=== PATIENT | female | born 1955 | race Caucasian/White ===

== ENCOUNTER 2020-11-23 07:19 | Emergency (ER) | payer OTHER ==
--- NOTE | 2020-11-23 07:40 | EDM.PDOC ---
ED HPI GENERAL MEDICAL PROBLEM - General Chief Complaint: Upper Extremity Injury/Pain Stated Complaint: FELL AND HURT LEFT WRIST Time Seen by Provider: 11/23/20 07:39 Source of Information: Reports: Patient History Limitations: Reports: No Limitations - History of Present Illness INITIAL COMMENTS - FREE TEXT/NARRATIVE: pt was taking boxes down and tripped and landed on her left wrist. She has a pain rating at a 6 this am. She does have a splint on the wrist this am. Onset: Other ( incident happened last nite. ) Duration: Hour(s): Location: Reports: Upper Extremity, Left Associated Symptoms: Reports: No Other Symptoms Right Wrist Pain Score (Numeric/FACES): 6 - Related Data Allergies Allergy/AdvReac Type Severity Reaction Status Date / Time Penicillins Allergy Swelling Verified 11/23/20 07:30 Home Meds: Home Meds Albuterol Sulfate [Proair Hfa] 2 puff IH Q4HR PRN 09/09/14 [History] Esomeprazole [NexIUM] 40 mg PO DAILY 09/09/14 [History] Fluticasone/Salmeterol [Advair 100-50 Diskus] 1 puff INH DAILY 09/09/14 [History] atorvaSTATin [Lipitor] 20 mg PO BEDTIME 09/09/14 [History] buPROPion HCL [Wellbutrin SR] 150 mg PO DAILY 09/09/14 [History] Review of Systems - Review of Systems Review Of Systems: See Below Eyes: Reports: No Symptoms Ears: Reports: No Symptoms Nose: Reports: No Symptoms Mouth/Throat: Reports: No Symptoms Respiratory: Reports: No Symptoms Cardiovascular: Reports: No Symptoms GI/Abdominal: Reports: No Symptoms Genitourinary: Reports: No Symptoms Musculoskeletal: Reports: Other (pain in left wrist. ) ED EXAM, GENERAL - Physical Exam Exam: See Below Free Text/Narrative:: pt arrived with pain in the left wrist after a fall. She has swelling and abrasions present. Xrays do no show a definite fracture. Exam Limited By: No Limitations General Appearance: Alert Extremities: Other (left wrist is painful and swollen. She has some abrasions present. She had a xray which showed no definte fracture. She will followup in a few days and may need to be rexrayed or MRI if persistent pain. ) Course - Vital Signs Last Recorded V/S: Last Vital Signs Temp 36.4 C 11/23/20 07:28 Pulse 88 11/23/20 07:28 Resp 18 11/23/20 07:28 BP 149/91 H 11/23/20 07:35 Pulse Ox 95 11/23/20 07:28 - Orders/Labs/Meds Orders: Active Orders 24 hr Category Date Time Status Consult to Orthopedic Clinic [CONS] Routine Cons 11/23/20 09:00 Ordered - Re-Assessments/Exams Free Text/Narrative Re-Assessment/Exam: 11/23/20 09:04 pt will use a splint and has a followup ortho appt. Departure - Departure Time of Disposition: 09:05 Disposition: Home, Self-Care 01 Condition: Fair Clinical Impression: Contusion of left wrist - Discharge Information Referrals: Josie Trinidad CNM [Primary Care Provider] - Forms: ED Department Discharge Care Plan Goals: ortho appt if ongoing pain, elvate cool pack, no work for the next 4-5 days, motrin 600mg q6h prn for pain alternate with tylenol. Sepsis Event Note (ED) - Evaluation Sepsis Screening Result: No Definite Risk - Focused Exam Vital Signs: Vital Signs Temp Pulse Resp BP Pulse Ox 11/23/20 07:35 149/91 H 11/23/20 07:28 36.4 C 88 18 174/127 H 95 - My Orders Last 24 Hours: My Active Orders 11/23/20 09:00 Consult to Orthopedic Clinic [CONS] Routine - Assessment/Plan Last 24 Hours: My Active Orders 11/23/20 09:00 Consult to Orthopedic Clinic [CONS] Routine
--- NOTE | 2020-11-23 08:57 | CR ---
Wrist Comp Min 3V Lt CLINICAL HISTORY: Pain, fall FINDINGS: There is deformity of the radial metaphysis. Configuration suggests an old healed fracture. There is some linear lucency transversely through the radial metaphysis with some disruption of the trabecular pattern. This is suspect for a nondisplaced fracture. There is a similar appearance in the distal ulna. There is moderate osteoarthritic change in the first and second carpometacarpal junctions AREA IMPRESSION: Probable old healed fracture of distal radius There is a vague transverse irregular lucency with some disruption of the trabecular pattern in the distal radial metaphysis. Nondisplaced fracture is not excluded. There is a similar appearance to the distal ulna. Short-term follow-up recommended
--- NOTE | 2020-11-23 08:59 | CR ---
Hand Comp Min 3V Lt CLINICAL HISTORY: Pain, fall FINDINGS: There is no acute fracture or dislocation of the hand.. There is osteoarthritic change in the first and second carpometacarpal junctions. There is some interphalangeal joint space narrowing. IMPRESSION: Osteoarthritic changes No fracture or dislocation
== END 2020-11-23 09:23 | disposition home or self-care (01) ==
LOC: JP.ED 07:19
DX: S60.212A Contusion of left wrist, initial encounter (principal); Z88.0 Allergy status to penicillin; W01.0XXA Fall on same level from slipping, tripping and stumbling without subsequent striking against object, initial encounter
CPT/HCPCS: 73110-26-LT; 73110-LT; 73130-26-LT; 73130-LT; 99282; 99283

== ENCOUNTER 2021-04-23 12:13 | Emergency (ER) | payer OTHER ==
--- NOTE | 2021-04-23 12:48 | EDM.PDOC ---
ED HPI GENERAL MEDICAL PROBLEM - General Chief Complaint: General Stated Complaint: RIB PAIN Time Seen by Provider: 04/23/21 12:35 Source of Information: Reports: Patient History Limitations: Reports: No Limitations - History of Present Illness INITIAL COMMENTS - FREE TEXT/NARRATIVE: 65 year old female with history of COPD arrives to ER via triage due to rib pain. She reports that she received a "bear hug" from son on Monday and remembers hearing her back crack and a popping sound. She reports pain initially bilaterally and worsening since. This AM has become more short of breath and having increased pain in her left lateral chest. Denies other associated symptoms such as cough, fever, nausea, vomiting, diarrhea. Denies bruising or pain else where. Onset: Other (last monday04/17/21) Duration: Getting Worse Location: Reports: Other (left lateral chest) Quality: Reports: Other Severity: Moderate Improves with: Reports: Immobilization Worsens with: Reports: Breathing Context: Reports: Activity Associated Symptoms: Reports: Shortness of Breath. Denies: Cough, Fever/Chills, Nausea/Vomiting - Related Data Allergies Allergy/AdvReac Type Severity Reaction Status Date / Time Penicillins Allergy Swelling Verified 11/23/20 07:30 Home Meds: Home Meds Albuterol Sulfate [Proair Hfa] 2 puff IH Q4HR PRN 09/09/14 [History] Fluticasone/Salmeterol [Advair 100-50 Diskus] 1 puff INH DAILY 09/09/14 [History] atorvaSTATin [Lipitor] 20 mg PO BEDTIME 09/09/14 [History] buPROPion HCL [Wellbutrin SR] 150 mg PO DAILY 09/09/14 [History] Albuterol/Ipratropium [Combivent Respimat] 1 puff INH Q4H PRN 11/25/20 [History] Betamethasone/Propylene Glyc [Betamethasone Dp Aug 0.05% Oin] 1 applic TOP BID 11/25/20 [History] Fluticasone Propionate [Flonase] 1 spray NASBOTH DAILY 11/25/20 [History] Halobetasol Propionate 1 applic TOP BID 11/25/20 [History] Ipratropium [place] 0.2 mg IH QID PRN 11/25/20 [History] Triamcinolone Acetonide [Triamcinolone Acetonide 0.1% Crm] 1 applic TOP TID 11/25/20 [History] hydrOXYzine HCL [Atarax] 25 mg PO DAILY 11/25/20 [History] predniSONE [Prednisone] 20 mg PO ASDIRECTED 11/25/20 [History] Past Medical History HEENT History: Reports: Impaired Vision Cardiovascular History: Reports: Hypertension Respiratory History: Reports: COPD Gastrointestinal History: Reports: None [employer] History: Reports: Musculoskeletal History: Reports: Other (See Below) Other Musculoskeletal History: Fell injuring L wrist/hand 11/23/20 Neurological History: Reports: Migraines - Infectious Disease History Infectious Disease History: Reports: Chicken Pox, Measles, Mumps, Novel Coronavirus - Past Surgical History Head Surgeries/Procedures: Reports: None HEENT Surgical History: Reports: Other (See Below) Other HEENT Surgeries/Procedures: ear, TMJ Cardiovascular Surgical History: Reports: None Respiratory Surgical History: Reports: None GI Surgical History: Reports: Appendectomy Female Surgical History: Reports: Section, Hysterectomy Neurological Surgical History: Reports: None Musculoskeletal Surgical History: Reports: None Dermatological Surgical History: Reports: None Social & Family History - Tobacco Use Tobacco Use Status *Q: Never Tobacco User Second Hand Smoke Exposure: No - Caffeine Use Caffeine Use: Reports: Coffee - Recreational Drug Use Recreational Drug Use: No ED ROS GENERAL - Review of Systems Review Of Systems: See Below Constitutional: Reports: No Symptoms HEENT: Reports: No Symptoms Respiratory: Reports: Shortness of Breath, Other (pain with deep breathing) Cardiovascular: Reports: Dyspnea on Exertion GI/Abdominal: Reports: No Symptoms : Reports: No Symptoms Musculoskeletal: Reports: Other (bilateral rib pain) Skin: Reports: No Symptoms Neurological: Reports: No Symptoms Psychiatric: Reports: No Symptoms Hematologic/Lymphatic: Reports: No Symptoms Immunologic: Reports: No Symptoms ED EXAM, GENERAL - Physical Exam Exam: See Below Free Text/Narrative:: Patient is resting on cart sitting up straight due to that being her most comfortable position. She is applying pressure to upper left lateral chest with her fingers and reports that is where her most significant pain is located and the pressure/ immobilization there is what helps to decrease the pain. Respirations are shallow and slightly labored. skin is warm and dry. She is alert and oriented. Exam Limited By: No Limitations General Appearance: Alert, Mild Distress Head: Atraumatic Neck: Normal Inspection Respiratory/Chest: Lungs Clear, Splinting, Other (mild labored and shallow breathing) Cardiovascular: Normal Peripheral Pulses GI/Abdominal: Soft, Non-Tender Back Exam: Normal Inspection, Full Range of Motion Extremities: Normal Inspection, Normal Range of Motion Neurological: Alert, Oriented, Normal Cognition Psychiatric: Normal Affect Skin Exam: Warm, Dry, Intact Course - Vital Signs Text/Narrative:: Chest CT ordered due to left rib pain caused by trauma, patient is in agreement with this plan of care. Last Recorded V/S: Last Vital Signs Temp 36.4 C 04/23/21 12:33 Pulse 82 04/23/21 12:33 Resp 20 04/23/21 12:33 BP 169/74 H 04/23/21 12:33 Pulse Ox 99 04/23/21 12:33 - Orders/Labs/Meds Meds: Medications Discontinued Medications Generic Name Dose Route Start Last Admin Trade Name Timq PRN Reason Stop Dose Admin Ketorolac Tromethamine 30 mg 04/23/21 14:06 04/23/21 14:10 Ketorolac 30 Mg/Ml Sdv IM 04/23/21 14:07 30 mg ONETIME ONE Administration Departure - Departure Time of Disposition: 14:38 Disposition: Home, Self-Care 01 Condition: Good Clinical Impression: Rib fracture - Discharge Information Instructions: Rib Fracture, [id number] Referrals: Josie Trinidad CNM [Primary Care Provider] - Forms: ED Department Discharge Care Plan Goals: Your chest imaging today shows one left sided rib fracture. Your lungs look ok. Prescription for Jackson sent. You can take this medication with additional Ibuprofen but do not use additional Tylenol because the Jackson already contains Tylenol and you do not want to exceed 3,000 mg in a 24 hour time period. You can hug a pillow when coughing for comfort as this will provide a stabilizing or splinting type effect. Please continue to take deep breaths so you do not deve lop a lung infection. Return to the ER if you develop worsening shortness of breath, increased chest pain, fever, worsening cough, coughing up blood or other concerning symptoms. Sepsis Event Note (ED) - Evaluation Sepsis Screening Result: No Definite Risk - Focused Exam Vital Signs: Vital Signs Temp Pulse Resp BP Pulse Ox 04/23/21 12:33 36.4 C 82 20 169/74 H 99 04/23/21 12:32 36.4 C 82 20 169/74 H 99
--- NOTE | 2021-04-23 13:41 | CT ---
Chest wo Cont CLINICAL HISTORY: Chest pain, short of breath TECHNIQUE: Transverse scans were obtained from the thoracic inlet to the lung bases without contrast. Auto dosage reduction in intervertebral reconstruction techniques were employed COMPARISONS: None there are a few small groundglass opacities bilaterally. These are between 1 to 2 cm in size. They are new since July 2020 There are 3 mm stable noncalcified nodules in the right upper and left lower lobes. FINDINGS: No mediastinal mass or suspicious lymphadenopathy is identified. No pleural effusions are seen. There are atherosclerotic changes in the aorta. No rib fractures are identified. Chest wall has a normal contour throughout IMPRESSION: Small stable nodules bilaterally. Scattered small faint groundglass opacities in the lungs. Patient is due for screening LD CT in July 2021 No evidence of rib fractures or chest wall lesions
[2021-04-23] MEDS ORDERED: Ketorolac 30 MG/ML SDV IM ONE (14:06)
== END 2021-04-23 14:38 | disposition home or self-care (01) ==
LOC: JP.ED 12:13
DX: S22.32XA Fracture of one rib, left side, initial encounter for closed fracture (principal); I10 Essential (primary) hypertension; J44.9 Chronic obstructive pulmonary disease, unspecified; Z86.16 Personal history of COVID-19; Z88.0 Allergy status to penicillin; Z79.899 Other long term (current) drug therapy; W22.8XXA Striking against or struck by other objects, initial encounter
CPT/HCPCS: 71250; 71250-26; 96372; 99285-25; J1885

== ENCOUNTER 2022-09-19 06:27 | Day surgery (SDC) | payer OTHER ==
[2022-09-19] MEDS ORDERED: Lactated Ringers 1,000 ML IV SCH (07:00)
[2022-09-19] MEDS ORDERED: Ondansetron 4 MG/2 ML SDV ONE (07:17)
[2022-09-19] MEDS ORDERED: Propofol 200 MG/20 ML SDV ONE (07:17)
== END 2022-09-19 08:38 | disposition home or self-care (01) ==
LOC: JP.SDS 06:27
PROVIDERS: ATTEND Student in an Organized Health Care Education/Training Program
DX: K21.00 Gastro-esophageal reflux disease with esophagitis, without bleeding (principal); K31.A0 Gastric intestinal metaplasia, unspecified; K29.70 Gastritis, unspecified, without bleeding; K44.9 Diaphragmatic hernia without obstruction or gangrene; J44.9 Chronic obstructive pulmonary disease, unspecified; F32.A Depression, unspecified; Z88.0 Allergy status to penicillin; Z79.899 Other long term (current) drug therapy
CPT/HCPCS: 43239; 87081; J2405; J2704; J7120

== ENCOUNTER 2022-10-21 06:54 | Day surgery (SDC) | payer OTHER ==
[2022-10-21] MEDS ORDERED: Midazolam 1 MG/ML 2 ML SDV ONE (07:16)
[2022-10-21] MEDS ORDERED: fentaNYL 50 MCG/ML SDV ONE (07:16)
[2022-10-21] MEDS ORDERED: Propofol 200 MG/20 ML SDV ONE (07:17)
[2022-10-21] MEDS ORDERED: Ondansetron 4 MG/2 ML SDV ONE (07:26)
[2022-10-21] MEDS ORDERED: Lactated Ringers 1,000 ML IV SCH (08:00)
== END 2022-10-21 09:38 | disposition home or self-care (01) ==
LOC: JP.SDS 06:54
PROVIDERS: ATTEND Student in an Organized Health Care Education/Training Program
DX: K31.A0 Gastric intestinal metaplasia, unspecified (principal); K21.00 Gastro-esophageal reflux disease with esophagitis, without bleeding; K22.70 Barrett's esophagus without dysplasia; K44.9 Diaphragmatic hernia without obstruction or gangrene; K29.70 Gastritis, unspecified, without bleeding; E78.5 Hyperlipidemia, unspecified; E66.9 Obesity, unspecified; J44.9 Chronic obstructive pulmonary disease, unspecified; Z68.33 Body mass index [BMI] 33.0-33.9, adult; Z88.0 Allergy status to penicillin; Z79.899 Other long term (current) drug therapy
CPT/HCPCS: 43239; J2405; J2704; J7120; J2250; J3010

== ENCOUNTER 2022-11-18 08:57 | Inpatient (IN) | payer OTHER ==
[~2022-11-18 08:57] MED LIST: Dexamethasone 4 MG/ML SDV ONE; Glycopyrrolate 0.2 MG/ML 5 ML MDV ONE; Neostigmine Methylsulfate 1 MG/ML 5 ML Syringe ONE; Ondansetron 4 MG/2 ML SDV ONE; Propofol 200 MG/20 ML SDV ONE; Rocuronium 50 MG/5 ML Vial ONE; Succinylcholine 200 MG/10 ML MDV ONE; fentaNYL 250 MCG/5 ML SDV ONE
[2022-11-18] MEDS: Lactated Ringers 1,000 ML IV SCH ×2 (09:26→16:53)
[2022-11-18] MEDS ORDERED: Scopolamine 1.5 MG Transdermal Patch TOP SCH (09:30)
[2022-11-18] MEDS ORDERED: Acetaminophen 500 MG Tab PO ONE (09:30)
[2022-11-18] MEDS ORDERED: Albuterol/Ipratropium 3.0-0.5 MG/3 ML Neb Soln NEB ONE (10:00)
[2022-11-18] MEDS ORDERED: Lidocaine 1% 20 ML MDV ONE (10:18)
[2022-11-18] MEDS ORDERED: Bupivacaine 0.5%/EPINEPHrine 1:200,000 50 ML MDV ONE (10:18)
[2022-11-18] MEDS ORDERED: Clindamycin Phosphate in D5W 900 MG in Premix Bag 1 BAG IV ONE ×2 (10:30)
[2022-11-18] MEDS ORDERED: Scopolamine 1.5 MG Transdermal Patch ONE ×2 (11:54)
[2022-11-18] MEDS ORDERED: fentaNYL 250 MCG/5 ML SDV ONE (12:00)
[2022-11-18] MEDS ORDERED: ePHEDrine 50 MG/ML SDV ONE (13:14)
[2022-11-18] MEDS ORDERED: Rocuronium 50 MG/5 ML Vial ONE (13:54)
[2022-11-18] MEDS ORDERED: Ondansetron 4 MG/2 ML SDV IVPUSH PRN (16:11)
[2022-11-18] MEDS ORDERED: Ipratropium 0.02% 0.5 MG/2.5 ML Neb Soln INH PRN (16:18)
[2022-11-18] MEDS ORDERED: Albuterol 90 MCG/6.7 GM Inhaler INH PRN (16:18)
[2022-11-18] MEDS: HYDROmorphone 0.5 MG/0.5 ML Syringe IVPUSH PRN ×2 (16:59→21:42)
[2022-11-18] MEDS: Albuterol/Ipratropium 3.0-0.5 MG/3 ML Neb Soln INH SCH ×2 (17:04→21:44)
[2022-11-18] MEDS ORDERED: Acetaminophen Soln 160 MG/5 ML UD Cup PO SCH (18:00)
[2022-11-18] MEDS: Acetaminophen Soln 650 MG/20.3 ML UD Cup PO SCH (18:04)
[2022-11-18] MEDS: hydrOXYzine HCl 25 MG Tab PO SCH (21:44)
[2022-11-18] MEDS: buPROPion 150 MG Tab.SR PO SCH (21:45)
[2022-11-18] MEDS: oxyCODONE 5 MG Tab PO PRN (22:14)
[2022-11-18] MEDS ORDERED: Tamsulosin 0.4 MG Cap.ER PO ONE (23:41)
[2022-11-19] MEDS: Acetaminophen Soln 650 MG/20.3 ML UD Cup PO SCH ×3 (01:25→17:00)
[2022-11-19] MEDS: Albuterol/Ipratropium 3.0-0.5 MG/3 ML Neb Soln INH SCH ×6 (01:28→23:26)
[2022-11-19] MEDS: Lactated Ringers 1,000 ML IV SCH (01:29)
[2022-11-19] MEDS: HYDROmorphone 0.5 MG/0.5 ML Syringe IVPUSH PRN (02:50)
[2022-11-19] MEDS: oxyCODONE 5 MG Tab PO PRN ×4 (04:34→23:25)
[2022-11-19] MEDS: Folic Acid 1 MG Tab PO SCH (08:04)
[2022-11-19] MEDS: Pantoprazole 40 MG Tab.CR PO SCH (08:04)
[2022-11-19] MEDS: buPROPion 150 MG Tab.SR PO SCH ×2 (08:06→20:24)
[2022-11-19] MEDS: Formoterol/Mometasone 100-5 MCG 8.8 GM Inhaler IH SCH (08:12)
[2022-11-19] MEDS ORDERED: Albuterol/Ipratropium 3.0-0.5 MG/3 ML Neb Soln INH ONE (08:15)
[2022-11-19] MEDS: Ketorolac 15 MG/ML SDV IVPUSH SCH ×3 (08:17→20:24)
[2022-11-19] MEDS ORDERED: Magnesium Sulfate/Water 2 GM in Premix Bag 1 BAG IV ONE (09:00)
[2022-11-19] MEDS ORDERED: Enoxaparin 40 MG/0.4 ML Syringe SUBCUT SCH (09:00)
[2022-11-19] MEDS: hydrOXYzine HCl 25 MG Tab PO SCH (20:24)
[2022-11-20] MEDS: Acetaminophen Soln 650 MG/20.3 ML UD Cup PO SCH ×2 (02:14→08:55)
[2022-11-20] MEDS: Ketorolac 15 MG/ML SDV IVPUSH SCH ×2 (02:15→08:53)
[2022-11-20] MEDS: Albuterol/Ipratropium 3.0-0.5 MG/3 ML Neb Soln INH SCH ×2 (07:27→11:01)
[2022-11-20] MEDS: Pantoprazole 40 MG Tab.CR PO SCH (08:53)
[2022-11-20] MEDS: buPROPion 150 MG Tab.SR PO SCH (08:55)
[2022-11-20] MEDS: Folic Acid 1 MG Tab PO SCH (08:55)
[2022-11-20] MEDS: Formoterol/Mometasone 100-5 MCG 8.8 GM Inhaler IH SCH (09:00)
== END 2022-11-20 11:20 | disposition home or self-care (01) | DRG 328 ==
LOC: JP.SDSSCHI 08:57 → JP.2SS 16:11
PROVIDERS: ADMIT Student in an Organized Health Care Education/Training Program; ATTEND Student in an Organized Health Care Education/Training Program
PROC: 0BQT4ZZ Repair Diaphragm, Percutaneous Endoscopic Approach (ICD-10-PCS; principal; 2022-11-18)
PROC: 0DV44ZZ Restriction of Esophagogastric Junction, Percutaneous Endoscopic Approach (ICD-10-PCS; 2022-11-18)
PROC: 8E0W4CZ Robotic Assisted Procedure of Trunk Region, Percutaneous Endoscopic Approach (ICD-10-PCS; 2022-11-18)
PROC: 0JB63ZZ Excision of Chest Subcutaneous Tissue and Fascia, Percutaneous Approach (ICD-10-PCS; 2022-11-18)
DX: K44.9 Diaphragmatic hernia without obstruction or gangrene (principal); R13.10 Dysphagia, unspecified; D17.4 Benign lipomatous neoplasm of intrathoracic organs; Z20.822 Contact with and (suspected) exposure to COVID-19; J44.9 Chronic obstructive pulmonary disease, unspecified; F32.A Depression, unspecified; K21.9 Gastro-esophageal reflux disease without esophagitis; E78.5 Hyperlipidemia, unspecified; E55.9 Vitamin D deficiency, unspecified; M75.41 Impingement syndrome of right shoulder; M19.011 Primary osteoarthritis, right shoulder; Z79.82 Long term (current) use of aspirin; Z79.899 Other long term (current) drug therapy; Z88.0 Allergy status to penicillin; R73.01 Impaired fasting glucose
CPT/HCPCS: 36415; 51701; 80048; 83735; 84100; 85025; 85027; 88304; 88341; 88342; 88360; 94640; A9270-GY; J0330; J1100; J1170; J1650; J1885; J2405; J2704; J2710; J3010; J3475; J3490; J7120; J7620; U0002

== ENCOUNTER 2023-01-08 08:03 | Emergency (ER) | payer MEDICARE, OTHER | END 2023-01-08 09:44 | disposition home or self-care (01) | LOC: JP.ED 08:03 | DX: S52.515A Nondisplaced fracture of left radial styloid process, initial encounter for closed fracture (principal); S62.355A Nondisplaced fracture of shaft of fourth metacarpal bone, left hand, initial encounter for closed fracture; E78.00 Pure hypercholesterolemia, unspecified; J44.9 Chronic obstructive pulmonary disease, unspecified; Z79.82 Long term (current) use of aspirin; Z88.0 Allergy status to penicillin; W01.0XXA Fall on same level from slipping, tripping and stumbling without subsequent striking against object, initial encounter | CPT/HCPCS: 29125; 73110-26-LT; 73110-LT; 73130-26-LT; 73130-LT; 99282; 99283 ==

== ENCOUNTER 2023-03-10 07:10 | Day surgery (SDC) | payer MEDICARE, OTHER ==
[2023-03-10] MEDS ORDERED: Propofol 200 MG/20 ML SDV ONE (07:23)
[2023-03-10] MEDS ORDERED: fentaNYL 50 MCG/ML SDV ONE (07:24)
[2023-03-10] MEDS ORDERED: Midazolam 1 MG/ML 2 ML SDV ONE (07:24)
[2023-03-10] MEDS ORDERED: Lactated Ringers 1,000 ML IV SCH (08:00)
== END 2023-03-10 10:46 | disposition home or self-care (01) ==
LOC: JP.SDS 07:10
PROVIDERS: ATTEND Surgery
DX: K21.9 Gastro-esophageal reflux disease without esophagitis (principal); K22.89 Other specified disease of esophagus; J44.9 Chronic obstructive pulmonary disease, unspecified; M19.90 Unspecified osteoarthritis, unspecified site; E66.9 Obesity, unspecified; F32.A Depression, unspecified; Z87.891 Personal history of nicotine dependence; Z79.899 Other long term (current) drug therapy; Z68.32 Body mass index [BMI] 32.0-32.9, adult
CPT/HCPCS: 43239; J2250; J2704; J3010; J7120

== ENCOUNTER 2023-06-16 07:31 | Day surgery (SDC) | payer MEDICARE, OTHER ==
[~2023-06-16 07:31] MED LIST changes: -Dexamethasone 4 MG/ML SDV ONE; -Glycopyrrolate 0.2 MG/ML 5 ML MDV ONE; +Midazolam 1 MG/ML 2 ML SDV ONE; -Neostigmine Methylsulfate 1 MG/ML 5 ML Syringe ONE; -Ondansetron 4 MG/2 ML SDV ONE; -Rocuronium 50 MG/5 ML Vial ONE; -Succinylcholine 200 MG/10 ML MDV ONE; -fentaNYL 250 MCG/5 ML SDV ONE; +fentaNYL 50 MCG/ML SDV ONE
[2023-06-16] MEDS ORDERED: Ondansetron 4 MG/2 ML SDV ONE (08:10)
[2023-06-16] MEDS ORDERED: Dexamethasone 4 MG/ML SDV ONE (08:10)
[2023-06-16] MEDS ORDERED: Albuterol/Ipratropium 3.0-0.5 MG/3 ML Neb Soln NEB ONE (08:30)
[2023-06-16] MEDS ORDERED: Dextrose 5%-Lactated Ringers 1,000 ML IV SCH (08:30)
[2023-06-16] MEDS ORDERED: Glycopyrrolate 0.2 MG/ML 2 ML SDV IVPUSH ONE (09:00)
== END 2023-06-16 11:48 | disposition home or self-care (01) ==
LOC: JP.SDS 07:31
PROVIDERS: ATTEND Student in an Organized Health Care Education/Training Program
DX: K20.90 Esophagitis, unspecified without bleeding (principal); K22.710 Barrett's esophagus with low grade dysplasia; K21.00 Gastro-esophageal reflux disease with esophagitis, without bleeding; J44.9 Chronic obstructive pulmonary disease, unspecified; I25.10 Atherosclerotic heart disease of native coronary artery without angina pectoris
CPT/HCPCS: 43239; 88305; 88341; 88342; 94640; J1100; J2250; J2405; J2704; J3010; J7121; J7620